=== PATIENT | male | born 2000 | race Caucasian/White ===

== ENCOUNTER 2022-08-05 12:14 | Emergency (ER) | payer BC ==
[2022-08-05] MEDS ORDERED: Bacitracin 1 PK ONE (13:19)
[2022-08-05] MEDS ORDERED: Boostrix 0.5 ML (Tdap) VIAL (>/=7 yrs of age) ONE (13:19)
== END 2022-08-05 14:30 | disposition home or self-care (01) ==
LOC: CSHERS 12:14
DX: S91.112A Laceration without foreign body of left great toe without damage to nail, initial encounter (principal); Z23 Encounter for immunization; W26.8XXA Contact with other sharp object(s), not elsewhere classified, initial encounter
CPT/HCPCS: 90471; 90715